=== PATIENT | female | born 1985 | race Caucasian/White ===

== ENCOUNTER 2017-12-13 10:03 | Emergency (ER) | payer BC, OTHER ==
[2017-12-13 10:13] VITALS: BP 129/76
[2017-12-13] MEDS ORDERED: IPRATROPIUM/ALBUTEROL 0.5-2.5 MG/3 ML AMPUL NEB ONE (10:48)
[2017-12-13] MEDS ORDERED: PREDNISONE 20 MG TABLET PO ONE (10:49)
--- NOTE | 2017-12-13 10:51 | ER Document Report ---
ED General - General Chief Complaint: Cough Stated Complaint: COUGH, WHEEZING, CHEST TIGHTNESS Time Seen by Provider: 12/13/17 10:45 Mode of Arrival: Ambulatory Information source: Patient Notes: 32-year-old female history of asthma presents with complaints of asthma exacerbation. Patient has been coughing for the past couple weeks nonproductive , patient she has been wheezing. Denies any fevers or chills admits to tightness sensation in chest Patient has never been intubated TRAVEL OUTSIDE OF THE [place] IN LAST 30 DAYS: No - HPI Onset: Just prior to arrival Onset/Duration: Sudden Quality of pain: Achy Severity: Mild Pain Level: 1 Associated symptoms: Nonproductive cough, Shortness of breath Exacerbated by: Coughing Relieved by: Denies Similar symptoms previously: Yes Recently seen / treated by doctor: Yes - Related Data Allergies/Adverse Reactions: No Known Allergies Allergy (Verified 12/13/17 10:03) Past Medical History - Social History Smoking Status: Never Smoker Cigarette use (# per day): No Chew tobacco use (# tins/day): No Smoking Education Provided: No Frequency of alcohol use: None Drug Abuse: None Family History: Reviewed & Not Pertinent Patient has suicidal ideation: No Patient has homicidal ideation: No - Past Medical History Cardiac Medical History: Denies: Hx Atrial Fibrillation, Hx Congestive Heart Failure, Hx Heart Attack , Hx Hypercholesterolemia, Hx Hypertension Pulmonary Medical History: Reports: Hx Asthma Denies: Hx Bronchitis, Hx COPD, Hx Pneumonia, Hx Tuberculosis Neurological Medical History: Denies: Hx Migraine, Hx Seizures Endocrine Medical History: Denies: Hx Diabetes Mellitus Type 1, Hx Diabetes Mellitus Type 2 Renal/ Medical History: Denies: Hx Ectopic , Hx End Stage Renal Disease, Hx Kidney Stones, Hx Ovarian Cysts, Hx Peritoneal Dialysis, Hx Pelvic Inflammatory Disease GI Medical History: Denies: Hx Gastritis, Hx Gastroesophageal Reflux Disease, Hx Hiatal Hernia, Hx Ulcer Musculoskeltal Medical History: Denies Hx Arthritis Psychiatric Medical History: Denies: Hx Attention Deficit Hyperactivity Disorder, Hx Bipolar Disorder, Hx Depression, Hx Schizophrenia Past Surgical History: Reports: Hx Section. Denies: Hx Abdominal Surgery, Hx Appendectomy, Hx Bowel Surgery, Hx Breast Surgery, Hx Cardiac Catheterization, Hx Cardiac Surgery, Hx Cholecystectomy, Hx Gastric Bypass Surgery, Hx Genitourinary Surgery, Hx Gynecologic Surgery, Hx Hysterectomy, Hx Kidney (Renal Surgery), Hx Mastectomy, Hx Neurologic Surgery, Hx Nose Surgery, Hx Open Heart Surgery, Hx Oral Surgery, Hx Orthopedic Surgery, Hx Pancreatic Surgery, Hx Pituitary Surgery, Hx Rectal Surgery, Hx Thyroid Surgery, Hx Tonsillectomy, Hx Tubal Ligation, Hx Urinary Tract Surgery, Hx Vascular Surgery - Immunizations Immunizations up to date: Yes Hx Diphtheria, Pertussis, Tetanus Vaccination: Yes Review of Systems - Review of Systems Notes: REVIEW OF SYSTEMS: CONSTITUTIONAL : Denies fever, chills, or sweats. Denies recent illness. EENT: Denies eye, ear, throat, or mouth pain or symptoms. Denies nasal or sinus congestion or discharge. Denies throat, tongue, or mouth swelling or difficulty swallowing. CARDIOVASCULAR: Denies chest pain. Denies palpitations or racing or irregular heart beat. Denies ankle edema. RESPIRATORY: Admits to cough shortness of breath wheezing GASTROINTESTINAL: Denies abdominal pain or distention. Denies nausea, vomiting , or diarrhea. Denies blood in vomitus, stools, or per rectum. Denies black, tarry stools. Denies constipation. GENITOURINARY: Denies difficulty urinating, painful urination, burning, frequency, blood in urine, or discharge. FEMALE GENITOURINARY: Denies vaginal bleeding, heavy or abnormal periods, irregular periods. Denies vaginal discharge or odor. MUSCULOSKELETAL: Denies back or neck pain or stiffness. Denies joint pain or swelling. SKIN: Denies rash, lesions or sores. HEMATOLOGIC : Denies easy bruising or bleeding. LYMPHATIC: Denies swollen, enlarged glands. NEUROLOGICAL: Denies confusion or altered mental status. Denies passing out or loss of consciousness. Denies dizziness or lightheadedness. Denies headache. Denies weakness or paralysis or loss of use of either side. Denies problems with gait or speech. Denies sensory loss, numbness, or tingling. Denies seizures. PSYCHIATRIC: Denies anxiety or stress. Denies depression, suicidal ideation, or homicidal ideation. ALL OTHER SYSTEMS REVIEWED AND NEGATIVE. PHYSICAL EXAMINATION: GENERAL: Well-appearing, well-nourished and in no acute distress. HEAD: Atraumatic, normocephalic. EYES: Pupils equal round and reactive to light, extraocular movements intact, conjunctiva are normal. ENT: Nares patent, oropharynx clear without exudates. Moist mucous membranes. NECK: Normal range of motion, supple without lymphadenopathy LUNGS: Faint inspiratory expiratory wheezing noted all throughout no respiratory distress HEART: Regular rate and rhythm without murmurs ABDOMEN: Soft, nontender, nondistended abdomen. No guarding, no rebound. No masses appreciated. Female : deferred Musculoskeletal: Normal range of motion, no pitting or edema. No cyanosis. NEUROLOGICAL: Cranial nerves grossly intact. Normal speech, normal gait. Normal sensory, motor exams PSYCH: Normal mood, normal affect. SKIN: Warm, Dry, normal turgor, no rashes or lesions noted. Dictation was performed using [employer] voice recognition software Physical Exam - Vital signs Vitals: Temp Pulse Resp BP Pulse Ox 98.4 F 94 14 129/76 H 99 12/13/17 10:12 12/13/17 10:12 12/13/17 10:12 12/13/17 10:12 12/13/17 10:12 Course - Re-evaluation Re-evalutation: 12/13/17 10:51 Vital signs are stable patient overall looks well, she is in no respiratory distress, she is coughing will be given duo nebs and steroids 12/13/17 11:31 Patient notes significant improvement after breathing treatments, she is otherwise well-appearing stable After performing a Medical Screening Examination, I estimate there is LOW risk for ACUTE CORONARY SYNDROME, PULMONARY EMBOLI, RESPIRATORY FAILURE, SEPSIS OR MENINGITIS, thus I consider the discharge disposition reasonable. I have reevaluated this patient multiple times and no significant life threatening changes are noted. The patient and I have discussed the diagnosis and risks, and we agree with discharging home with close follow-up. We also discussed returning to the Emergency Department immediately if new or worsening symptoms occur. We have discussed the symptoms which are most concerning (e.g., changing or worsening pain, trouble swallowing or breathing, neck stiffness, fever) that necessitate immediate return. - Vital Signs Vital signs: Temp Pulse Resp BP Pulse Ox 98.4 F 94 14 129/76 H 99 12/13/17 10:12 12/13/17 10:12 12/13/17 10:12 12/13/17 10:12 12/13/17 10:12 Discharge - Discharge Clinical Impression: Asthma exacerbation Qualifiers: Asthma severity: mild Asthma persistence: intermittent Qualified Code(s): J45.21 - Mild intermittent asthma with (acute) exacerbation Condition: Stable Disposition: HOME, SELF-CARE Instructions: Asthma ([facility]) Additional Instructions: Follow up with your physician tomorrow for further care or return to the ED IMMEDIATELY if symptoms worsen or new concerns occur. If you cannot afford to follow up with your primary care physician a list of low cost clinics have been provided at the end of your discharge papers as well. Prescriptions: Albuterol Sulfate [Proair HFA Inhalation Aerosol 8.5 gm MDI] 2 puff IH Q4H PRN # 1 mdi PRN Reason: Prednisone [Deltasone 20 mg Tablet] 3 tab PO DAILY 5 Days tablet
== END 2017-12-13 11:43 | disposition home or self-care (01) ==
LOC: ER 10:03
DX: J45.21 Mild intermittent asthma with (acute) exacerbation (principal); R05 Cough; R06.02 Shortness of breath; R07.9 Chest pain, unspecified
CPT/HCPCS: 94640; 99284; J7512; J7620

== ENCOUNTER → 2018-08-06 | Outpatient (CLI) | payer BC ==
--- NOTE | 2018-08-06 19:01 | RADIOLOGY REPORT (SQ) ---
EXAM DESCRIPTION: FOOT RIGHT COMPLETE COMPLETED DATE/TIME: 08/06/2018 6:33 pm REASON FOR STUDY: M79.671 RT FOOT PAIN/ NO TRAUMA-INJURY M79.671 PAIN IN RIGHT FOOT COMPARISON: 11/30/2013 EXAM PARAMETERS: NUMBER OF VIEWS: Three views. TECHNIQUE: AP, lateral and oblique radiographic images acquired of the right foot. LIMITATIONS: None. FINDINGS: MINERALIZATION: Normal. BONES: Transverse lucency in the lateral sesamoid bone at the 1st metatarsal head, not seen on the pr ior exam, possible acute fracture, correlate with site of pain. No other fracture or dislocation. JOINTS: No effusion. SOFT TISSUES: No significant soft tissue swelling. No radiopaque foreign body. OTHER: No other significant finding. IMPRESSION: Transverse lucency in the lateral sesamoid bone at the 1st metatarsal head, not seen on the prior exam, possible acute fracture, correlate with site of pain. No other fracture or dislocati on. TECHNICAL DOCUMENTATION: JOB ID: [id number] 2010 [employer]- All Rights Reserved Reading location - IP/workstation name: [email or web address]
== END ==
LOC: RAD 18:02
PROVIDERS: ATTEND Nurse Practitioner Family
DX: M79.671 Pain in right foot (principal)

== ENCOUNTER → 2018-08-29 | Outpatient (CLI) | payer BC ==
--- NOTE | 2018-08-29 18:00 | RADIOLOGY REPORT (SQ) ---
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 TECHNIQUE: Dynamic and static claros-scale images acquired of the thyroid gland. Selected additional c olor/power Doppler images recorded. All images stored to PACS. LIMITATIONS: None. FINDINGS: The thyroid gland is diffusely small and increased in echogenicity, likely from chronic th yroiditis. Right lobe thyroid 3.6 x 1.3 x 1.2 cm size. Left lobe thyroid 4 x 1.5 x 1.3 cm in size. Thyroid isthmus 3 mm in thickness, normal. IMPRESSION: Diffusely small echogenic thyroid gland likely from chronic thyroiditis. No focal nodul es are identified on today's ultrasound. TECHNICAL DOCUMENTATION: JOB ID: [id number] [employer]- All Rights Reserved Reading location - IP/workstation name: [email or web address]
== END ==
LOC: RAD 17:51
PROVIDERS: ATTEND Student in an Organized Health Care Education/Training Program
DX: E04.9 Nontoxic goiter, unspecified (principal)
CPT/HCPCS: 76536

== ENCOUNTER → 2018-12-07 | Outpatient (CLI) | payer BC ==
--- NOTE | 2018-12-07 15:42 | RADIOLOGY REPORT (SQ) ---
EXAM DESCRIPTION: FOOT RIGHT COMPLETE COMPLETED DATE/TIME: 12/07/2018 3:32 pm REASON FOR STUDY: STRESS FRACTURE, RIGHT FOOT, SUBS FOR FX W ROUTN HEAL M84.374D STRESS FRACTURE, R IGHT FOOT, SUBS FOR FX W ROUTN HE COMPARISON: 08/06/2018 NUMBER OF VIEWS: Three views. TECHNIQUE: AP, lateral and oblique radiographic images acquired of the right foot. LIMITATIONS: None. FINDINGS: MINERALIZATION: Normal. BONES: No acute fracture or dislocation. Lucency previously described in the sesamoid bone of the gr eat toe is again noted and unchanged. JOINTS: No effusions. SOFT TISSUES: No soft tissue swelling. No foreign body. OTHER: No other significant finding. IMPRESSION: No acute findings. TECHNICAL DOCUMENTATION: JOB ID: [id number] [facility]- All Rights Reserved Reading location - IP/workstation name: [email or web address]
== END ==
LOC: RAD 15:15
PROVIDERS: ATTEND Podiatrist Foot & Ankle Surgery
DX: M84.374D Stress fracture, right foot, subsequent encounter for fracture with routine healing (principal)

== ENCOUNTER 2019-03-16 12:53 | Emergency (ER) | payer BC, MEDICAID ==
[2019-03-16] MEDS ORDERED: NORMAL SALINE 1000 ML 1,000 ML IV ONE (13:44)
--- NOTE | 2019-03-16 13:45 | ER Document Report ---
ED Medical Screen (RME) - General Chief Complaint: Vaginal Bleeding Stated Complaint: VAGINAL BLEEDING Time Seen by Provider: 03/16/19 13:37 Primary Care Provider: LISSETTE CADENA MD [Primary Care Provider] - Follow up as needed Notes: Patient presents 9 weeks complaining of vaginal bleeding that started today. Patient is a . Review of previous records demonstrates patient is O+. Patient denies any pain or urinary symptoms. I have greeted and performed a rapid initial assessment of this patient. A comprehensive ED assessment and evaluation of the patient, analysis of test results and completion of the medical decision making process will be conducted by additional ED providers. TRAVEL OUTSIDE OF THE [place] IN LAST 30 DAYS: No - Related Data Allergies/Adverse Reactions: No Known Allergies Allergy (Verified 03/16/19 12:54) Past Medical History - General Last Menstrual Period: 01/08/19 - Social History Frequency of alcohol use: None Drug Abuse: None - Past Medical History Cardiac Medical History: Denies: Hx Atrial Fibrillation, Hx Congestive Heart Failure, Hx Heart Attack, Hx Hypercholesterolemia, Hx Hypertension Pulmonary Medical History: Reports: Hx Asthma Denies: Hx Bronchitis, Hx COPD, Hx Pneumonia, Hx Tuberculosis Neurological Medical History: Denies: Hx Migraine, Hx Seizures Endocrine Medical History: Denies: Hx Diabetes Mellitus Type 1, Hx Diabetes Mellitus Type 2 Renal/ Medical History: Denies: Hx Ectopic , Hx End Stage Renal Disease, Hx Kidney Stones, Hx Ovarian Cysts, Hx Peritoneal Dialysis, Hx Pelvic Inflammatory Disease GI Medical History: Denies: Hx Gastritis, Hx Gastroesophageal Reflux Disease, Hx Hiatal Hernia, Hx Ulcer Musculoskeltal Medical History: Denies Hx Arthritis Psychiatric Medical History: Denies: Hx Attention Deficit Hyperactivity Disorder, Hx Bipolar Disorder, Hx Depression, Hx Schizophrenia Past Surgical History: Reports: Hx Section. Denies: Hx Abdominal Surgery, Hx Appendectomy, Hx Bowel Surgery, Hx Breast Surgery, Hx Cardiac Catheterization, Hx Cardiac Surgery, Hx Cholecystectomy, Hx Gastric Bypass Surgery, Hx Genitourinary Surgery, Hx Gynecologic Surgery, Hx Hysterectomy, Hx Kidney (Renal Surgery), Hx Mastectomy, Hx Neurologic Surgery, Hx Nose Surgery, Hx Open Heart Surgery, Hx Oral Surgery, Hx Orthopedic Surgery, Hx Pancreatic Surgery, Hx Pituitary Surgery, Hx Rectal Surgery, Hx Thyroid Surgery, Hx Tonsillectomy, Hx Tubal Ligation, Hx Urinary Tract Surgery, Hx Vascular Surgery - Immunizations Immunizations up to date: Yes Hx Diphtheria, Pertussis, Tetanus Vaccination: Yes Physical Exam - Vital signs Vitals: Temp Pulse Resp BP Pulse Ox 98.3 F 116 H 18 127/64 H 100 03/16/19 12:58 03/16/19 12:58 03/16/19 12:58 03/16/19 12:58 03/16/19 12:58 - General General appearance: Appears well, Alert In distress: None Course - Vital Signs Vital signs: Temp Pulse Resp BP Pulse Ox 98.3 F 116 H 18 127/64 H 100 03/16/19 12:58 03/16/19 12:58 03/16/19 12:58 03/16/19 12:58 03/16/19 12:58 Doctor's Discharge - Discharge Referrals: LISSETTE CADENA MD [Primary Care Provider] - Follow up as needed
[2019-03-16 13:50] LABS: APPEARANCE,URINE CLEAR; BILIRUBIN,URINE NEGATIVE (NEGATIVE); COLOR,URINE YELLOW; GLUCOSE, URINE NEGATIVE (NEGATIVE); KETONES,URINE NEGATIVE (NEGATIVE); LEUKOCYTE ESTERASE,URINE SMALL (NEGATIVE); NITRITE,URINE NEGATIVE (NEGATIVE); PROTEIN,URINE NEGATIVE (NEGATIVE); URINE SPECIFIC GRAVITY 1.009
[2019-03-16 14:23] LABS: ABSOLUTE BASOPHILS # (AUTO) 0.1 10^3/uL (0.0-0.2); ABSOLUTE EOSINOPHILS # (AUTO) 0.1 10^3/uL (0.0-0.6); ABSOLUTE LYMPHOCYTES (AUTO) 3.3 10^3/uL (0.5-4.7); ABSOLUTE MONOCYTES (AUTO) 0.6 10^3/uL (0.1-1.4); ABSOLUTE NEUT (AUTO) 6.4 10^3/uL (1.7-8.2); BASOPHILS % (AUTO) 0.8 % (0-2); EOSINOPHILS % (AUTO) 0.9 % (0-6); HEMATOCRIT 39.4 % (36.0-47.0); HEMOGLOBIN 13.4 g/dL (12.0-15.5); LYMPHOCYTES % (AUTO) 31.6 % (13-45); MEAN CORPUSCULAR HEMOGLOBIN 29.1 pg (27.0-33.4); MEAN CORPUSCULAR HGB CONC 34.1 g/dL (32.0-36.0); MEAN CORPUSCULAR VOLUME 85 fl (80-97); MONOCYTES % (AUTO) 5.7 % (3-13); RED BLOOD COUNT 4.62 10^6/uL (3.72-5.28); RED CELL DISTRIBUTION WIDTH 12.6 % (11.5-14.0); TOTAL CELLS COUNTED % (AUTO) 100 %; WHITE BLOOD COUNT 10.4 10^3/uL (4.0-10.5)
[2019-03-16 14:43] LABS: PLATELET COUNT 294 10^3/uL (150-450)
--- NOTE | 2019-03-16 16:50 | RADIOLOGY REPORT (SQ) ---
EXAM DESCRIPTION: U/S OB TRANSVAGINAL W/O DOP COMPLETED DATE/TIME: 03/16/2019 4:36 pm REASON FOR STUDY: vag bleeding COMPARISON: No previous this TECHNIQUE: Endovaginal static and realtime grayscale images acquired of the pelvis. Additional selec monserrat spectral and color Doppler images recorded. All images stored on PACs. bHC,000 CLINICAL DATES: Last menses 01/08/2019 LIMITATIONS: None. FINDINGS: FETUS: Single Living intrauterine . ULTRASOUND EGA: 9 weeks 2 days ULTRASOUND ELE: 10/17/2019 EFW: Not applicable less than 20 weeks. CRL: 2.5 cm FHR: 175 beats per minute. SURVEY: Too early to assess. AMNIOTIC FLUID: Adequate amount. PLACENTA: Not yet developed due to early gestation. SUBCHORIONIC BLEED: No SIZE OF BLEED: Not applicable. UTERUS: No masses. No anomalies. Uterus is 10 x 7 x 7.5 cm in size CERVICAL LENGTH: Closed, 2.3 cm in length RIGHT ADNEXA: Normal ovary with normal vascular flow. Right ovary 2.8 x 2.5 x 2.1 cm in size, with a 1.8 cm right ovarian cyst likely the corpus luteum. No adnexal free fluid. No adnexal masses. LEFT ADNEXA: Normal ovary with normal vascular flow. Left ovary 2.6 x 1.7 x 1.6 cm in size No adnexal free fluid. No adnexal masses. FREE FLUID: None. OTHER: No other significant finding. IMPRESSION: LIVING INTRAUTERINE . EGA 9 weeks 2 days Trimester of : First trimester - 0 to 13 weeks. TECHNICAL DOCUMENTATION: JOB ID: [id number]- All Rights Reserved Reading location - IP/workstation name: [email or web address]
--- NOTE | 2019-03-16 17:31 | ER Document Report ---
HPI - HPI Patient complains to provider of: vaginal bleeding Time Seen by Provider: 03/16/19 13:37 Onset: Just prior to arrival Onset/Duration: Sudden Quality of pain: No pain Pain Level: Denies Context: Patient presents G4, P3 about 9 weeks with vaginal bleeding. Patient denies any pelvic pain or urinary symptoms. Patient states she is high risk as she has had premature deliveries previously. Associated Symptoms: Other - Vaginal bleeding. denies: Chest pain, Fever, Headache, Nausea, Vomiting Exacerbated by: Denies Relieved by: Denies Similar symptoms previously: No Recently seen / treated by doctor: No - ROS ROS below otherwise negative: Yes Systems Reviewed and Negative: Yes All other systems reviewed and negative - CONSTITUTIONAL Constitutional: DENIES: Fever, Chills - NEURO Neurology: DENIES: Headache - RESPIRATORY Respiratory: DENIES: Trouble Breathing, Coughing - GASTROINTESTINAL Gastrointestinal: DENIES: Abdominal Pain, Nausea, Patient vomiting - URINARY Urinary: DENIES: Dysuria, Urgency, Frequency - REPRODUCTIVE LMP: 01/08/2019 Reproductive: REPORTS: :, Abnormal bleeding / discharge - MUSCULOSKELETAL Musculoskeletal: DENIES: Extremity pain, Back Pain - DERM Skin Color: Normal, [place] Skin Problems: None Past Medical History - General Information source: Patient Last Menstrual Period: 01/08/19 - Social History Smoking Status: Never Smoker Frequency of alcohol use: None Drug Abuse: None 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 IN LAST 30 DAYS: No - HEENT HEENT: Atraumatic, Normocephalic - NECK Neck: Normal Inspection, Supple. negative: Lymphadenopathy-Left, Lymphadenopathy-Right - RESPIRATORY Respiratory: Breath Sounds Normal, No Respiratory Distress - CARDIOVASCULAR Cardiovascular: Regular Rate, Regular Rhythm, No Murmur. negative: Tachycardia - GI/ABDOMEN Gastrointestinal: Abdomen Soft, Abdomen Non-Tender, No Organomegaly, Normal Bowel Sounds - BACK Back: Normal Inspection. negative: CVA Tenderness-Right, CVA Tenderness-Left - MUSCULOSKELETAL/EXTREMETIES Musculoskeletal/Extremeties: TEODOROJEIMYDARLEEN - NEURO Level of Consciousness: Awake, Alert, Appropriate Motor/Sensory: No Motor Deficit - DERM Integumentary: Warm, Dry, No Rash Course - Re-evaluation Re-evalutation: 03/16/19 17:27 Patient denies any concern about any sexually transmitted infection. Patient with some leukocyte esterase and trace bacteria on urinalysis. Will culture urine and place patient on short course of antibiotics at this time. Patient states that the vaginal bleeding has lessened and is now only light spotting at this time. Patient's tachycardia has improved as well. Patient was stable H&H at this time. Patient does have a follow-up with her SHELTER DIRECTOR provider this week. Discussed good return precautions at this time. - Vital Signs Vital signs: Temp Pulse Resp BP Pulse Ox 98 F 87 18 119/70 100 03/16/19 16:56 03/16/19 17:01 03/16/19 16:56 03/16/19 16:56 03/16/19 16:56 - Laboratory Result Diagrams: 03/16/19 14:04 Laboratory results interpreted by me: 03/16/19 03/16/19 13:10 14:04 Beta HCG, Quant 577453.00 H Urine Blood LARGE H Urine Urobilinogen 4.0 H Ur Leukocyte Esterase SMALL H 03/16/19 17:28 Labs- Entire Visit 03/16/19 03/16/19 03/16/19 13:10 14:04 14:04 WBC 10.4 RBC 4.62 Hgb 13.4 Hct 39.4 MCV 85 MCH 29.1 MCHC 34.1 RDW 12.6 Plt Count 294 Lymph % (Auto) 31.6 [place] % (Auto) 5.7 Eos % (Auto) 0.9 Baso % (Auto) 0.8 Absolute Neuts (auto) 6.4 Absolute Lymphs (auto) 3.3 Absolute Monos (auto) 0.6 Absolute Eos (auto) 0.1 Absolute Basos (auto) 0.1 Seg Neutrophils % 61.0 Beta HCG, Quant 224463.00 H Total Beta HCG POSITIVE Urine Color YELLOW Urine Appearance CLEAR Urine pH 7.0 Ur Specific [place] 1.009 Urine Protein NEGATIVE Urine Glucose (UA) NEGATIVE Urine Ketones NEGATIVE Urine Blood LARGE H Urine Nitrite NEGATIVE Urine Bilirubin NEGATIVE Urine Urobilinogen 4.0 H Ur Leukocyte Esterase SMALL H Urine WBC (Auto) 3 Urine RBC (Auto) 0 Urine Bacteria (Auto) TRACE Squamous Epi Cells Auto 2 Urine Ascorbic Acid NEGATIVE - Diagnostic Test Radiology reviewed: Reports reviewed Discharge - Discharge Clinical Impression: Bleeding in early UTI (urinary tract infection) Qualifiers: Urinary tract infection type: site unspecified Hematuria presence: with hematuria Qualified Code(s): N39.0 - Urinary tract infection, site not specified; R31.9 - Hematuria, unspecified Condition: Stable Disposition: HOME, SELF-CARE Instructions: Urinary Tract Infection ([facility]), Cephalexin ([facility]), Bleeding During Early ([facility]) Additional Instructions: Return immediately for any new or worsening symptoms Followup with your primary care provider, call tomorrow to make a followup appointment Urine culture is pending, we will call if you need any different treatment Pelvic rest until symptoms have resolved and you have been cleared by your SHELTER DIRECTOR provider Prescriptions: Cephalexin Monohydrate [Keflex 500 mg Capsule] 500 mg PO BID 5 Days capsule Forms: Return to Work Referrals: LISSETTE CADENA MD [Primary Care Provider] - Follow up as needed
[2019-03-16 18:00] VITALS: BP 121/71
== END 2019-03-16 18:04 | disposition home or self-care (01) ==
LOC: ER 12:53
DX: O23.41 Unspecified infection of urinary tract in pregnancy, first trimester (principal); O20.9 Hemorrhage in early pregnancy, unspecified; Z3A.09 9 weeks gestation of pregnancy
CPT/HCPCS: 99284; 96360; 36415; 87086; 84702; 85025; 81001; 76817; J7030

== ENCOUNTER 2019-07-20 18:21 | Outpatient (CLI) | payer BC, MEDICAID ==
[2019-07-20 19:37] LABS: APPEARANCE,URINE CLEAR; BILIRUBIN,URINE NEGATIVE (NEGATIVE); COLOR,URINE STRAW; GLUCOSE, URINE NEGATIVE (NEGATIVE); KETONES,URINE NEGATIVE (NEGATIVE); LEUKOCYTE ESTERASE,URINE NEGATIVE (NEGATIVE); NITRITE,URINE NEGATIVE (NEGATIVE); PROTEIN,URINE NEGATIVE (NEGATIVE); URINE SPECIFIC GRAVITY 1.001; UROBILINOGEN,URINE NEGATIVE mg/dL (<2.0)
[2019-07-20 19:51] LABS: URINE AMPHETAMINES SCREEN NEGATIVE; URINE BARBITURATES SCREEN NEGATIVE; URINE BENZODIAZEPINES SCREEN NEGATIVE; URINE COCAINE SCREEN NEGATIVE; URINE MARIJUANA (THC) SCREEN NEGATIVE; URINE METHADONE SCREEN NEGATIVE; URINE PHENCYCLIDINE SCREEN NEGATIVE
== END 2019-07-20 19:42 | disposition home or self-care (01) ==
LOC: LC 18:21
PROVIDERS: ATTEND Obstetrics & Gynecology Gynecology
DX: O47.9 False labor, unspecified (principal)
CPT/HCPCS: 80307; 81001

== ENCOUNTER 2019-11-26 08:45 | Emergency (ER) | payer BC, MEDICAID ==
--- NOTE | 2019-11-26 09:23 | ER Document Report ---
ED General - General Chief Complaint: Fever Stated Complaint: FEVER Time Seen by Provider: 11/26/19 08:52 Mode of Arrival: Ambulatory Information source: Patient Notes: triage recieved pt to [facility]. pt reports she has had fever chills sweats sore throat fatigue . reports she is also having some pressure in the head and neck. states symptoms started on wednesday. states her employer wants her tested for covid 19. pt is alert and oriented. resp are even and unlabored. pt denies any other symptoms at this time. my notes 34-year-old female arrives by POV with chief complaint of sore throat myalgias fevers nonproductive cough. Patient works at [employer] and her boss wants her to have a COVID-19 test. Patient denies any skin rash blurry vision nausea vomiting. Patient just delivered her fourth baby little girl at 6 pounds 2 ounces at 37 weeks normal spontaneous vaginal delivery. Patient reports she was high risk because all of her other children were underweight to include 9-year-old 8-year-old and a 3-year-old. They were all 5 to 3 pounds each. Patient denies children being sick and denies being around any adults that have been sick recently. TRAVEL OUTSIDE OF THE [place] IN LAST 30 DAYS: No - HPI Onset: Other - Sx since Wed Onset/Duration: Sudden, Persistent, Worse Quality of pain: Achy Severity: Mild Pain Level: 1 Associated symptoms: Body/muscle aches, Nonproductive cough, Fever, Sore throat Exacerbated by: Denies Relieved by: Denies Similar symptoms previously: No Recently seen / treated by doctor: Yes - just delivered baby girl - Related Data Allergies/Adverse Reactions: No Known Allergies Allergy (Verified 11/26/19 08:50) Past Medical History - General Information source: Patient - Social History Smoking Status: Never Smoker Cigarette use (# per day): No Chew tobacco use (# tins/day): No Smoking Education Provided: No Frequency of alcohol use: None Drug Abuse: None Lives with: Family Family History: Reviewed & Not Pertinent Patient has homicidal ideation: No - Past Medical History Cardiac Medical History: Denies: Hx Atrial Fibrillation, Hx Congestive Heart Failure, Hx Heart Attack, Hx Hypercholesterolemia, Hx Hypertension Pulmonary Medical History: Reports: Hx Asthma Denies: Hx Bronchitis, Hx COPD, Hx Pneumonia, Hx Tuberculosis Neurological Medical History: Denies: Hx Migraine, Hx Seizures Endocrine Medical History: Reports: Hx Hypothyroidism. Denies: Hx Diabetes Mellitus Type 1, Hx Diabetes Mellitus Type 2 Renal/ Medical History: Denies: Hx Ectopic , Hx End Stage Renal Disease, Hx Kidney Stones, Hx Ovarian Cysts, Hx Peritoneal Dialysis, Hx Pelvic Inflammatory Disease GI Medical History: Denies: Hx Gastritis, Hx Gastroesophageal Reflux Disease, Hx Hiatal Hernia, Hx Ulcer Musculoskeletal Medical History: Denies Hx Arthritis Psychiatric Medical History: Denies: Hx Attention Deficit Hyperactivity Disorder, Hx Bipolar Disorder, Hx Depression, Hx Schizophrenia Past Surgical History: Reports: Hx Section. Denies: Hx Abdominal Surgery, Hx Appendectomy, Hx Bowel Surgery, Hx Breast Surgery, Hx Cardiac [place] terization, Hx Cardiac Surgery, Hx Cholecystectomy, Hx Gastric Bypass Surgery, Hx Genitourinary Surgery, Hx Gynecologic Surgery, Hx Hysterectomy, Hx Kidney (Renal Surgery), Hx Mastectomy, Hx Neurologic Surgery, Hx Nose Surgery, Hx Open Heart Surgery, Hx Oral Surgery, Hx Orthopedic Surgery, Hx Pancreatic Surgery, Hx Pituitary Surgery, Hx Rectal Surgery, Hx Thyroid Surgery, Hx Tonsillectomy, Hx Tubal Ligation, Hx Urinary Tract Surgery, Hx Vascular Surgery - Immunizations Immunizations up to date: Yes Hx Diphtheria, Pertussis, Tetanus Vaccination: Yes Review of Systems - Review of Systems Constitutional: See HPI, Chills, Diaphoresis, Fever, Malaise, Weakness, Recent illness EENT: See HPI, Sinus discharge Cardiovascular: No symptoms reported Respiratory: No symptoms reported Gastrointestinal: No symptoms reported Genitourinary: No symptoms reported Female Genitourinary: No symptoms reported Musculoskeletal: No symptoms reported Skin: No symptoms reported Hematologic/Lymphatic: No symptoms reported Neurological/Psychological: See HPI, Weakness Physical Exam - Vital signs Vitals: Temp Pulse Resp BP Pulse Ox 98.6 F 106 H 18 138/95 H 98 11/26/19 08:52 11/26/19 08:52 11/26/19 08:52 11/26/19 08:52 11/26/19 08:52 Interpretation: Hypertensive, Tachycardic - General General appearance: Alert - HEENT Head: Normocephalic, Atraumatic Eyes: Normal Pupils: PERRL Sinus: Normal Nasal: Normal Mouth/Lips: Normal Pharynx: Erythema, Tonsillar hypertrophy - +2 karel tonsils with purulent d/c Neck: Normal - Respiratory Respiratory status: No respiratory distress Chest status: Nontender Breath sounds: Normal Chest palpation: Normal - Cardiovascular Rhythm: Tachycardia Heart sounds: Normal auscultation Murmur: No - Abdominal Inspection: Normal Distension: No distension Bowel sounds: Normal Tenderness: Nontender Organomegaly: No organomegaly - Back Back: Normal - Extremities General upper extremity: Normal inspection General lower extremity: Normal inspection - Neurological Neuro grossly intact: Yes Cognition: Normal Orientation: AAOx4 [place] Coma Scale Eye Opening: Spontaneous [place] Coma Scale Verbal: Oriented [place] Coma Scale Motor: Obeys Commands [place] Coma Scale Total: 15 Speech: Normal Motor strength normal: LUE, RUE, LLE, RLE Sensory: Normal - Psychological Associated symptoms: Normal affect - Skin Skin Temperature: Warm Skin Moisture: Dry Course - Vital Signs Vital signs: Temp Pulse Resp BP Pulse Ox 98.6 F 106 H 18 138/95 H 98 11/26/19 08:52 11/26/19 08:52 11/26/19 08:52 11/26/19 08:52 11/26/19 08:52 - Diagnostic Test Radiology reviewed: Reports reviewed Critical Care Note - Critical Care Note Total time excluding time spent on procedures (mins): 90 Discharge - Discharge Clinical Impression: Tonsillitis with exudate, Strep pharyngitis Pharyngitis Qualifiers: Pharyngitis/tonsillitis etiology: unspecified etiology Qualified Code(s): J02.9 - Acute pharyngitis, unspecified Condition: Good Disposition: HOME, SELF-CARE Additional Instructions: Follow-up with personal doctor this week return to ER as needed take medicines as directed and make sure your baby is safe from strep throat as well. Keep hands thoroughly washed. Off work for 2 to 3 days. Prescriptions: Mupirocin [Bactroban 2% Ointment 22 gm] 1 applic TP HSP PRN #1 tube PRN Reason: Azithromycin [Zithromax 250 mg Tablet] 250 mg PO ASDIR PRN #6 tablet PRN Reason: Forms: Return to Work
--- NOTE | 2019-11-26 09:56 | RADIOLOGY REPORT (SQ) ---
EXAM DESCRIPTION: CHEST SINGLE VIEW IMAGES COMPLETED DATE/TIME: 11/26/2019 9:41 am REASON FOR STUDY: fever COMPARISON: November 2013 EXAM PARAMETERS: NUMBER OF VIEWS: One view. TECHNIQUE: Single frontal radiographic view of the chest acquired. RADIATION DOSE: NA LIMITATIONS: None. FINDINGS: LUNGS AND PLEURA: No opacities, masses or pneumothorax. No pleural effusion. MEDIASTINUM AND HILAR STRUCTURES: No masses. Contour normal. HEART AND VASCULAR STRUCTURES: Heart normal in size. Normal vasculature. BONES: No acute findings. HARDWARE: None in the chest. OTHER: No other significant finding. IMPRESSION: NO ACUTE RADIOGRAPHIC FINDING IN THE CHEST. TECHNICAL DOCUMENTATION: JOB ID: [id number] 2010 [employer]- All Rights Reserved Reading location - IP/workstation name: [email or web address]
[2019-11-26 10:43] LABS: A TYPE INFLUENZA AG NEGATIVE (NEGATIVE); B INFLUENZA AG NEGATIVE (NEGATIVE)
[2019-11-26] MEDS ORDERED: AZITHROMYCIN 250 MG TABLET PO ONE (10:47)
[2019-11-26] MEDS ORDERED: CEFTRIAXONE INJ 1000 MG VIAL IM ONE (10:47)
[2019-11-26] MEDS ORDERED: LIDOCAINE 1% INJ (10 MG/ML) 10 ML MDV ONE (10:54)
[2019-11-26 11:12] VITALS: BP 124/86
== END 2019-11-26 11:12 | disposition home or self-care (01) ==
LOC: ER 08:45
DX: J02.0 Streptococcal pharyngitis (principal); R50.9 Fever, unspecified; R53.83 Other fatigue; M79.10 Myalgia, unspecified site; Z20.828 Contact with and (suspected) exposure to other viral communicable diseases
CPT/HCPCS: 99285; 96372; 87880; 87635; 87804; 71045; J0696